=== PATIENT | male | born 1965 | race Caucasian/White ===

== ENCOUNTER 2017-04-06 13:10 | Day surgery (SDC) | payer BC ==
[~2017-04-06] VITALS: Ht 182.9 cm; Wt 108.9 kg
[2017-04-06] VITALS (8 sets, daily range): BP systolic 117–139; BP diastolic 45–93
[~2017-04-06 13:10] MED LIST: NO HOME MEDS; cefazolin/dext.iso 2gm/50ml 50 ML IV ONE; famotidine 20mg tablet PO ONE; ringers solution, lacted 1,000 ML IV SCH
[2017-04-06] MEDS ORDERED: LIDOcaine 1% (10mg/ml) 2ml vial ONE (13:36)
[2017-04-06 13:43] LABS: BASOPHILS % (AUTO) 0.5 % (0-1); EOSINOPHILS # (AUTO) 0.1 X10'3 (0-0.9); EOSINOPHILS % (AUTO) 1.8 % (0-6); LYMPHOCYTES # (AUTO) 1.5 X10'3 (1.1-4.8); LYMPHOCYTES % (AUTO) 20.2 % (21-51); MEAN CORPUSCULAR HEMOGLOBIN 30.3 PG (27.0-31.0); MEAN CORPUSCULAR HGB CONC 34.2 % (33.0-36.5); MEAN CORPUSCULAR VOLUME 88.7 FL (78-98); MONOCYTES # (AUTO) 0.5 X10'3 (0-0.9); MONOCYTES % (AUTO) 6.9 % (2-12); NEUTROPHILS # (AUTO) 5.2 X10'3 (1.8-7.7); NEUTROPHILS % (AUTO) 70.6 % (42-75); PRE OP HEMATOCRIT 47.3 % (42.0-52.0); PRE OP HEMOGLOBIN 16.2 g/dL (14.0-17.9); PRE OP PLATELET COUNT 281 X10'3 (140-440); RED BLOOD COUNT 5.33 X10'6 (4.70-6.10); RED CELL DISTRIBUTION WIDTH 13.8 % (11.5-14.5)
[2017-04-06 13:56] LABS: ALBUMIN 4.1 G/DL (3.4-5.0); ALBUMIN/GLOBULIN RATIO 1.3 (1.1-1.5); ALKALINE PHOSPHATASE 109 IU/L (46-116); BLOOD UREA NITROGEN 17 MG/DL (7-18); BUN/CREATININE RATIO 14.9 (5.4-32.0); CALCIUM 8.7 MG/DL (8.5-10.1); CHLORIDE 105 MMOL/L (99-107); CREATININE 1.14 MG/DL (0.60-1.10); PRE OP ALT 67 U/L (30-65); PRE OP ANION GAP 7 (8-16); PRE OP AST 31 U/L (10-37); PRE OP BILIRUB, TOTAL 0.8 MG/DL (0.0-1.0); PRE OP GLUCOSE 91 MG/DL (70-104); PRE OP POTASSIUM 4.2 MMOL/L (3.4-5.1); PRE OP SODIUM 142 MMOL/L (135-145); TOTAL CARBON DIOXIDE 30.1 MMOL/L (24-32); TOTAL PROTEIN 7.3 G/DL (6.4-8.2); eGFR 68 ML/MIN
[2017-04-06] MEDS ORDERED: BUPIVAcaine/PF 2.5 mg/ml (0.25%) 30ml vial ONE (14:00)
[2017-04-06] MEDS ORDERED: fentaNYL/PF 50MCG/1 ML 2ML syringe ONE (15:42)
[2017-04-06] MEDS ORDERED: sevoflurane 250ml liquid IH ONE (15:42)
[2017-04-06] MEDS ORDERED: propofol inj 20 ML IV ONE (15:43)
[2017-04-06] MEDS ORDERED: midazolam 2 mg/2 ml injection ONE (15:43)
[2017-04-06] MEDS ORDERED: ringers solution, lacted 1,000 ML IV SCH (16:24)
[2017-04-06] MEDS ORDERED: proCHLORperazine 10 MG/2 ml inj IV PRN (16:25)
[2017-04-06] MEDS ORDERED: morphine 2 MG/ML inj. syringe IV PRN ×2 (16:25)
[2017-04-06] MEDS ORDERED: meperidine/PF 50mg/ml syringe IV PRN ×3 (16:25)
[2017-04-06] MEDS ORDERED: ondansetron/PF 4mg/2ml inj IV PRN (16:25)
[2017-04-06] MEDS ORDERED: HYDROcodone/acetaminophen 10/325mg tab PO PRN (16:25)
[2017-04-06] MEDS ORDERED: acetaminophen 325mg tablet PO PRN (16:50)
== END 2017-04-06 17:05 | disposition home or self-care (01) ==
LOC: PAS 13:10
PROVIDERS: ATTEND Orthopaedic Surgery
DX: S62.306A Unspecified fracture of fifth metacarpal bone, right hand, initial encounter for closed fracture (principal); M17.11 Unilateral primary osteoarthritis, right knee; E11.9 Type 2 diabetes mellitus without complications; E66.9 Obesity, unspecified; Z98.890 Other specified postprocedural states; Z72.89 Other problems related to lifestyle; Z88.6 Allergy status to analgesic agent; Z79.899 Other long term (current) drug therapy; Z68.32 Body mass index [BMI] 32.0-32.9, adult; X58.XXXA Exposure to other specified factors, initial encounter; Y93.89 Activity, other specified; Y92.89 Other specified places as the place of occurrence of the external cause; Y99.9 Unspecified external cause status
CPT/HCPCS: 26605; 36415; 73120; 76000; 80053; 85025; 93005; A6449; J0690; J2250; J2704; J3010; J3490; J7120